=== PATIENT | male | born 1935 | race Caucasian/White ===

== ENCOUNTER 2020-11-24 12:01 | Outpatient (CLI) | payer MEDICARE, BC | END 2020-11-24 12:02 | disposition home or self-care (01) | LOC: CSHCT 12:01 | PROVIDERS: ATTEND Otolaryngology | DX: H93.8X2 Other specified disorders of left ear (principal); Z90.49 Acquired absence of other specified parts of digestive tract; M26.642 Arthritis of left temporomandibular joint | CPT/HCPCS: 70480 ==

== ENCOUNTER 2021-01-19 06:59 | Day surgery (SDC) | payer MEDICARE, BC ==
[2021-01-15 13:35] VITALS: BMI 26.4
[2021-01-19] MEDS ORDERED: Lidocaine 1% MPF 2 ML VIAL ONE (09:04)
[2021-01-19] MEDS ORDERED: oFLOXacin 0.3% Opth 5 ML BOT ONE (09:56)
[2021-01-19] MEDS ORDERED: Lidocaine 1% w/Epinephrine 1:100K 30 ML VIAL ONE (09:56)
[2021-01-19] MEDS ORDERED: CEFAZOLIN 1 GM VIAL ONE (09:57)
[2021-01-19] MEDS ORDERED: PROPOFOL 20 ML ONE (10:00)
[2021-01-19] MEDS ORDERED: Fentanyl 100 MCG/2 ML VIAL ONE (10:00)
[2021-01-19] MEDS ORDERED: Midazolam HCl 2 mg/2 ml Vial ONE (10:00)
[2021-01-19] MEDS ORDERED: Ondansetron PF 4 MG/2 ML Vial ONE (10:01)
[2021-01-19] MEDS ORDERED: Rocuronium Bromide 10 MG/ML (10ML VIAL) ONE (10:01)
[2021-01-19] MEDS ORDERED: Dexamethasone 20 MG/5 ML VIAL ONE (10:01)
[2021-01-19] MEDS ORDERED: PHENYLEPHRINE-NS 100 MCG/ML 10 ML SYRINGE ONE (10:24)
[2021-01-19] MEDS ORDERED: ePHEDrine Sulfate 50 MG/10 ML VIAL ONE (10:32)
[2021-01-19] MEDS ORDERED: Mupirocin 2% Ointment 22 GM Tube ONE (11:06)
== END 2021-01-19 12:30 | disposition home or self-care (01) ==
LOC: CSHSDC 06:59
PROVIDERS: ATTEND Otolaryngology Plastic Surgery within the Head & Neck
PROC: 0HQ2XZZ Repair Right Ear Skin, External Approach (ICD-10-PCS; principal; 2021-01-19)
DX: C44.292 Other specified malignant neoplasm of skin of right ear and external auricular canal (principal); H60.501 Unspecified acute noninfective otitis externa, right ear; H93.8X1 Other specified disorders of right ear
CPT/HCPCS: 88305; 88325; J0690; J1100; J2250; J2405; J2704; J3010

== ENCOUNTER 2021-10-11 06:58 | Inpatient (IN) | payer MEDICARE, BC ==
[2021-10-11 07:28] LABS: #Monocytes 0.2 10x3/uL (0.0-1.1); #Neutrophils 10.9 10x3/uL (1.5-8.4); %Basophils 0.2 % (0.0-2.0); %Lymphocytes 11.1 % (18.0-47.0); %Monocytes 1.3 % (0.0-10.0); %Neutrophils 86.8 % (40.0-75.0); Hemoglobin 15.6 g/dL (13.5-17.5); Mean Corpuscular HGB CONC 33.4 g/dL (32.0-36.0); Mean Corpuscular Hemoglobin 29.5 pg (27.0-33.0); Mean Corpuscular Volume 88.4 fl (81.2-95.1); Mean Platelet Volume 9.7 fl (7.4-10.4); Platelet Count 243 10x3/uL (150-450); RBC Distribution Width 15.1 % (11.5-14.5); Red Blood Cell (RBC) Count 5.28 10x6/uL (4.32-5.72); White Blood Cell (WBC) Count 12.5 10x3/uL (3.5-10.5)
[2021-10-11] MEDS ORDERED: Morphine 4 MG/ML VIAL ONE (07:30)
[2021-10-11] MEDS ORDERED: Ondansetron PF 4 MG/2 ML Vial ONE (07:30)
[2021-10-11] MEDS ORDERED: Piperacillin/Tazobactam 3.375 GM VIAL ONE (07:30)
[2021-10-11] MEDS ORDERED: Acetaminophen 500 MG TAB ONE (07:30)
[2021-10-11 07:45] LABS: ALT (SGPT) 24 U/L (8-55); AST (SGOT) 34 U/L (5-34); Albumin 4.1 g/dL (3.4-4.8); Alkaline Phosphatase 51 U/L (40-110); Anion Gap 20 mmol/L (10-20); BUN (Urea Nitrogen) 27 mg/dL (8.4-25.7); Bilirubin, Total 2.3 mg/dL (0.2-1.2); Calc. Creatinine Clearance 0 mL/min (70-130); Calcium 9.4 mg/dL (7.8-10.44); Carbon Dioxide 15 mmol/L (23-31); Chloride 110 mmol/L (98-107); Estimated GFR 34; Globulin 2.9 g/dL (2.4-3.5); Glucose 110 mg/dL (83-110); Lipase 34 U/L (8-78); Potassium 4.4 mmol/L (3.5-5.1); Sodium 141 mmol/L (136-145)
[2021-10-11] MEDS ORDERED: Iopamidol 300 61% 100 ML VIAL FS ONE (08:00)
[2021-10-11 10:07] LABS: SARS-CoV-2 NAA Rapid Test Not Detected (NotDetected)
[2021-10-11 10:11] LABS: Lactic Acid 0.9 mmol/L (0.5-2.2)
[2021-10-11 10:18] LABS: Bilirubin Neg (Negative); Blood, Urine 50 (Negative); Clarity Slightly Cloudy (Clear); Glucose, Urine (Dipstick) Normal (Negative); Ketone, Urine Negative (Negative); Leukocyte 100 (Negative); Nitrite Negative (Negative); Protein, Urine (Dipstick) 30 mg/dl (Neg-Trace); Specific Gravity, Urine 1.015 (1.002-1.036); Urobilinogen Normal mg/dL (Less than 2)
[2021-10-11 10:20] LABS: RBC/HPF 0-3 HPF (0-3); Squamous Epithelial 0-3 HPF (0-3); WBC/HPF 0-3 HPF (0-3)
[2021-10-11 10:21] LABS: Bacteria/HPF Rare-Few HPF (None Seen)
[2021-10-11] MEDS ORDERED: Acetaminophen 325 MG TAB PO PRN (10:39)
[2021-10-11] MEDS ORDERED: Ondansetron ODT 4 MG TAB PO PRN (10:39)
[2021-10-11] MEDS ORDERED: Lactated Ringer's 1,000 ML IV SCH (11:00)
[2021-10-11] MEDS ORDERED: Piperacillin/Tazobactam 3.375 GM in Sodium Chloride 0.9% 100 ML IVPB SCH (12:00)
[2021-10-11 15:11] VITALS: BMI 27.0
[2021-10-11] MEDS: Fenofibrate Nanocrystallized 145 MG TAB PO SCH (20:51)
[2021-10-11] MEDS: Atorvastatin Calcium 40 MG TAB PO SCH (20:51)
[2021-10-11] MEDS: Aspirin 81 mg Enteric Coated Tablet PO SCH (20:51)
[2021-10-11] MEDS: Piperacillin/Tazobactam 3.375 GM in Sodium Chloride 0.9% 100 ML IVPB SCH (20:58)
[2021-10-12 05:03] LABS: #Eosinphils 0.1 10x3/uL (0.0-0.5); #Monocytes 1.1 10x3/uL (0.0-1.1); #Neutrophils 8.2 10x3/uL (1.5-8.4); %Basophils 0.2 % (0.0-2.0); %Eosinophils 0.7 % (0.0-6.0); %Lymphocytes 8.1 % (18.0-47.0); %Monocytes 10.3 % (0.0-10.0); %Neutrophils 80.2 % (40.0-75.0); Mean Corpuscular HGB CONC 32.3 g/dL (32.0-36.0); Mean Corpuscular Hemoglobin 29.1 pg (27.0-33.0); Mean Corpuscular Volume 89.9 fl (81.2-95.1); Mean Platelet Volume 9.8 fl (7.4-10.4); Platelet Count 190 10x3/uL (150-450); RBC Distribution Width 15.2 % (11.5-14.5); Red Blood Cell (RBC) Count 4.47 10x6/uL (4.32-5.72); White Blood Cell (WBC) Count 10.2 10x3/uL (3.5-10.5)
[2021-10-12] MEDS: Piperacillin/Tazobactam 3.375 GM in Sodium Chloride 0.9% 100 ML IVPB SCH ×3 (05:06→22:24)
[2021-10-12 05:22] LABS: ALT (SGPT) 19 U/L (8-55); AST (SGOT) 27 U/L (5-34); Albumin 3.2 g/dL (3.4-4.8); Alkaline Phosphatase 37 U/L (40-110); Anion Gap 13 mmol/L (10-20); BUN (Urea Nitrogen) 28 mg/dL (8.4-25.7); Bilirubin, Total 0.9 mg/dL (0.2-1.2); Calc. Creatinine Clearance 45 mL/min (70-130); Calcium 8.8 mg/dL (7.8-10.44); Carbon Dioxide 22 mmol/L (23-31); Chloride 109 mmol/L (98-107); Estimated GFR 43; Globulin 2.7 g/dL (2.4-3.5); Glucose 91 mg/dL (83-110); Magnesium 1.9 mg/dL (1.6-2.6); Protein, Total 5.9 g/dL (5.8-8.1); Sodium 140 mmol/L (136-145)
[2021-10-12] MEDS: Cholecalciferol 1,000 UNITS (25 MCG) TAB PO SCH (09:37)
[2021-10-12] MEDS: Tamsulosin HCl 0.4 MG CAP PO SCH (09:37)
[2021-10-12] MEDS: Folic Acid 1 MG TAB PO SCH (09:38)
[2021-10-12] MEDS: Multivitamin W/ Minerals 1 TAB PO SCH (13:59)
[2021-10-12] MEDS: Fenofibrate Nanocrystallized 145 MG TAB PO SCH (22:23)
[2021-10-12] MEDS: Aspirin 81 mg Enteric Coated Tablet PO SCH (22:23)
[2021-10-12] MEDS: Atorvastatin Calcium 40 MG TAB PO SCH (22:23)
[2021-10-12] MEDS ORDERED: Mag-Al 1200 mg/1200 mg/30 ML UDCUP PO PRN (22:47)
[2021-10-13 03:58] LABS: #Eosinphils 0.1 10x3/uL (0.0-0.5); #Neutrophils 5.4 10x3/uL (1.5-8.4); %Basophils 0.1 % (0.0-2.0); %Eosinophils 1.2 % (0.0-6.0); %Neutrophils 72.3 % (40.0-75.0); Hemoglobin 12.6 g/dL (13.5-17.5); Mean Corpuscular HGB CONC 32.5 g/dL (32.0-36.0); Mean Corpuscular Volume 89.2 fl (81.2-95.1); Mean Platelet Volume 10.1 fl (7.4-10.4); Platelet Count 217 10x3/uL (150-450); RBC Distribution Width 14.9 % (11.5-14.5); Red Blood Cell (RBC) Count 4.35 10x6/uL (4.32-5.72); White Blood Cell (WBC) Count 7.5 10x3/uL (3.5-10.5)
[2021-10-13 04:21] LABS: ALT (SGPT) 20 U/L (8-55); AST (SGOT) 26 U/L (5-34); Albumin 3.2 g/dL (3.4-4.8); Alkaline Phosphatase 42 U/L (40-110); Anion Gap 15 mmol/L (10-20); BUN (Urea Nitrogen) 34 mg/dL (8.4-25.7); Bilirubin, Total 0.8 mg/dL (0.2-1.2); Calc. Creatinine Clearance 42 mL/min (70-130); Calcium 9.1 mg/dL (7.8-10.44); Carbon Dioxide 21 mmol/L (23-31); Chloride 107 mmol/L (98-107); Estimated GFR 39; Globulin 2.7 g/dL (2.4-3.5); Glucose 101 mg/dL (83-110); Potassium 4.1 mmol/L (3.5-5.1); Protein, Total 5.9 g/dL (5.8-8.1); Sodium 139 mmol/L (136-145)
[2021-10-13] MEDS: Piperacillin/Tazobactam 3.375 GM in Sodium Chloride 0.9% 100 ML IVPB SCH ×3 (05:38→21:31)
[2021-10-13] MEDS: Folic Acid 1 MG TAB PO SCH (09:42)
[2021-10-13] MEDS: Multivitamin W/ Minerals 1 TAB PO SCH (09:42)
[2021-10-13] MEDS: Tamsulosin HCl 0.4 MG CAP PO SCH (09:42)
[2021-10-13] MEDS: Cholecalciferol 1,000 UNITS (25 MCG) TAB PO SCH (09:42)
[2021-10-13] MEDS ORDERED: Polyethylene Glycol 3350 17 GM Packet PO PRN (18:58)
[2021-10-13] MEDS ORDERED: Polyethylene Glycol 3350 17 GM Packet PO SCH (20:00)
[2021-10-13] MEDS ORDERED: Acetaminophen 500 MG TAB PO PRN (20:36)
[2021-10-13] MEDS ORDERED: Benzonatate 100 MG CAP PO PRN (20:36)
[2021-10-13] MEDS ORDERED: Bisacodyl 5 MG TAB PO PRN (20:36)
[2021-10-13] MEDS ORDERED: Senokot S 8.6-50 MG TAB PO PRN (20:36)
[2021-10-13] MEDS ORDERED: Calcium Carbonate 500 MG ChewTAB PO PRN (20:36)
[2021-10-13] MEDS ORDERED: diphenhydrAMINE 25 MG CAP PO PRN (20:36)
[2021-10-13] MEDS ORDERED: Moisturizing Cream (Eucerin) 113 GM JAR TOP PRN (20:36)
[2021-10-13] MEDS ORDERED: Artificial Tear Sol 15 ML BOT EA EYE PRN (20:36)
[2021-10-13] MEDS: Atorvastatin Calcium 40 MG TAB PO SCH (20:38)
[2021-10-13] MEDS: Fenofibrate Nanocrystallized 145 MG TAB PO SCH (20:38)
[2021-10-13] MEDS: Aspirin 81 mg Enteric Coated Tablet PO SCH (20:38)
[2021-10-13 21:58] LABS: Creatinine, Urine 72.1 mg/dL (63-166); Microalbumin/Creat Ratio 13.9 mg/g (Less than 30)
[2021-10-14] MEDS: Piperacillin/Tazobactam 3.375 GM in Sodium Chloride 0.9% 100 ML IVPB SCH (05:39)
[2021-10-14] MEDS: Multivitamin W/ Minerals 1 TAB PO SCH (09:54)
[2021-10-14] MEDS: Tamsulosin HCl 0.4 MG CAP PO SCH (09:54)
[2021-10-14] MEDS: Cholecalciferol 1,000 UNITS (25 MCG) TAB PO SCH (09:54)
[2021-10-14] MEDS: Folic Acid 1 MG TAB PO SCH (09:54)
[2021-10-14 12:47] VITALS: BP 152/63; TEMP 96.9
== END 2021-10-14 14:35 | disposition home or self-care (01) | DRG 872 ==
LOC: CSHERS 06:58 → CSHTELE 13:55 → UNDOADMIN 13:55 → OBSVTOIN 13:55 → INTOOBSV 13:55 → CSHTELE 10-12 18:36
PROVIDERS: ADMIT Family Medicine; ATTEND Family Medicine
DX: A41.50 Gram-negative sepsis, unspecified (principal); N17.9 Acute kidney failure, unspecified; N39.0 Urinary tract infection, site not specified; E78.5 Hyperlipidemia, unspecified; K80.20 Calculus of gallbladder without cholecystitis without obstruction; N20.0 Calculus of kidney; K76.0 Fatty (change of) liver, not elsewhere classified; N28.1 Cyst of kidney, acquired; K76.89 Other specified diseases of liver; N18.9 Chronic kidney disease, unspecified; R31.9 Hematuria, unspecified; I12.9 Hypertensive chronic kidney disease with stage 1 through stage 4 chronic kidney disease, or unspecified chronic kidney disease; Z20.822 Contact with and (suspected) exposure to COVID-19; Z79.899 Other long term (current) drug therapy; Z88.1 Allergy status to other antibiotic agents
CPT/HCPCS: 36415; 71045; 74177; 76705; 80053; 81003; 81015; 82043; 83605; 83690; 83735; 84153; 84484; 85025; 87040; 87077; 87086; 87149; 87186; 93005; 93010; 94760; 96365; 96366; 96375; 96376; G0378; J2270; J2405; J2543; J3490; J7120; Q9967

== ENCOUNTER 2021-11-09 11:55 | Outpatient (CLI) | payer MEDICARE, BC | END 2021-11-09 11:56 | disposition home or self-care (01) | LOC: CSHRAD 11:55 | PROVIDERS: ATTEND Family Medicine | DX: M17.12 Unilateral primary osteoarthritis, left knee (principal); Z96.652 Presence of left artificial knee joint; M25.862 Other specified joint disorders, left knee ==

== ENCOUNTER 2022-05-27 10:34 | Inpatient (IN) | payer MEDICARE, BC ==
[2022-05-27] MEDS ORDERED: Morphine 4 MG/ML VIAL ONE (11:19)
[2022-05-27] MEDS ORDERED: Ondansetron PF 4 MG/2 ML Vial ONE (11:19)
[2022-05-27 11:32] LABS: Hemoglobin 15.4 g/dL (13.5-17.5); Mean Corpuscular HGB CONC 32.7 g/dL (32.0-36.0); Mean Corpuscular Hemoglobin 29.5 pg (27.0-33.0); Mean Corpuscular Volume 90.2 fl (81.2-95.1); Mean Platelet Volume 9.2 fl (7.4-10.4); Platelet Count 228 10x3/uL (150-450); RBC Distribution Width 15.3 % (11.5-14.5); Red Blood Cell (RBC) Count 5.22 10x6/uL (4.32-5.72); White Blood Cell (WBC) Count 17.9 10x3/uL (3.5-10.5)
[2022-05-27] MEDS ORDERED: Iopamidol 370 76% 100 ML VIAL ONE (11:35)
[2022-05-27 11:38] LABS: MDiff Complete? YES
[2022-05-27 11:40] LABS: ALT (SGPT) 60 U/L (8-55); AST (SGOT) 78 U/L (5-34); Alkaline Phosphatase 45 U/L (40-110); Anion Gap 16 mmol/L (10-20); BUN (Urea Nitrogen) 31 mg/dL (8.4-25.7); Bilirubin, Total 1.6 mg/dL (0.2-1.2); Calc. Creatinine Clearance 0 mL/min (70-130); Calcium 9.8 mg/dL (7.8-10.44); Carbon Dioxide 21 mmol/L (23-31); Chloride 106 mmol/L (98-107); Estimated GFR 33; Globulin 2.6 g/dL (2.4-3.5); Glucose 123 mg/dL (83-110); Lipase 32 U/L (8-78); Potassium 4.1 mmol/L (3.5-5.1); Protein, Total 6.6 g/dL (5.8-8.1); Sodium 139 mmol/L (136-145)
[2022-05-27 11:47] LABS: Neutrophil 83 % (42-75)
[2022-05-27 11:48] LABS: Band 5 % (5-11); Lymphocytes 5 % (21-51); Monocytes 4 % (0-10); Reactive Lymphocytes 3 % (0-10)
[2022-05-27 11:49] LABS: Platelet Morphology Comment Appears Adequate; RBC Morphology Normal
[2022-05-27 12:03] LABS: CKMB 1.7 ng/mL (0-6.6)
[2022-05-27] MEDS ORDERED: cefTRIAXone\\ROCEPHIN 1 GM VIAL ONE (12:43)
[2022-05-27] MEDS ORDERED: Ondansetron ODT 4 MG TAB PO PRN (14:31)
[2022-05-27] MEDS ORDERED: Ondansetron PF 4 MG/2 ML Vial IVP PRN (14:31)
[2022-05-27] MEDS ORDERED: Acetaminophen 650 MG Suppository PR PRN (14:31)
[2022-05-27 14:44] VITALS: BMI 26.1
[2022-05-27] MEDS ORDERED: Aspirin 325 MG TAB PO SCH (15:45)
[2022-05-27 16:40] LABS: Troponin I 1.092 ng/mL (< 0.028)
[2022-05-27 18:56] LABS: Troponin I 0.943 ng/mL (< 0.028)
[2022-05-27] MEDS: Acetaminophen 325 MG TAB PO PRN (21:35)
[2022-05-27] MEDS: Atorvastatin Calcium 40 MG TAB PO SCH (21:35)
[2022-05-27] MEDS ORDERED: Piperacillin/Tazobactam 3.375 GM in Sodium Chloride 0.9% 100 ML IVPB SCH (23:00)
[2022-05-28] MEDS: Piperacillin/Tazobactam 3.375 GM in Sodium Chloride 0.9% 100 ML IVPB SCH ×3 (02:55→18:18)
[2022-05-28 03:41] LABS: #Monocytes 0.6 10x3/uL (0.0-1.1); #Neutrophils 11.6 10x3/uL (1.5-8.4); %Basophils 0.2 % (0.0-2.0); %Eosinophils 0.1 % (0.0-6.0); %Lymphocytes 5.7 % (18.0-47.0); %Monocytes 4.3 % (0.0-10.0); %Neutrophils 89.2 % (40.0-75.0); Hemoglobin 13.4 g/dL (13.5-17.5); Mean Corpuscular HGB CONC 32.7 g/dL (32.0-36.0); Mean Corpuscular Hemoglobin 29.3 pg (27.0-33.0); Mean Corpuscular Volume 89.7 fl (81.2-95.1); Mean Platelet Volume 9.5 fl (7.4-10.4); Platelet Count 176 10x3/uL (150-450); RBC Distribution Width 15.4 % (11.5-14.5); Red Blood Cell (RBC) Count 4.57 10x6/uL (4.32-5.72); White Blood Cell (WBC) Count 12.9 10x3/uL (3.5-10.5)
[2022-05-28 03:52] LABS: ALT (SGPT) 43 U/L (8-55); AST (SGOT) 45 U/L (5-34); Albumin 3.3 g/dL (3.4-4.8); Alkaline Phosphatase 39 U/L (40-110); Anion Gap 13 mmol/L (10-20); BUN (Urea Nitrogen) 35 mg/dL (8.4-25.7); Bilirubin, Total 1.1 mg/dL (0.2-1.2); Calc. Creatinine Clearance 40 mL/min (70-130); Calcium 9.7 mg/dL (7.8-10.44); Carbon Dioxide 22 mmol/L (23-31); Chloride 110 mmol/L (98-107); Estimated GFR 39; Globulin 2.7 g/dL (2.4-3.5); Glucose 109 mg/dL (83-110); Potassium 3.8 mmol/L (3.5-5.1); Sodium 141 mmol/L (136-145)
[2022-05-28] MEDS: Acetaminophen 325 MG TAB PO PRN ×2 (04:05→08:41)
[2022-05-28 08:19] LABS: SARS-CoV-2 NAA Rapid Test DETECTED (NotDetected)
[2022-05-28] MEDS: Tamsulosin HCl 0.4 MG CAP PO SCH (08:42)
[2022-05-28] MEDS ORDERED: Bupivacaine HCl 0.5%/Epinephrine 1:200,000/PF 30 ml Vial ONE (09:34)
[2022-05-28] MEDS ORDERED: Fentanyl 100 MCG/2 ML VIAL ONE (10:07)
[2022-05-28] MEDS ORDERED: Rocuronium Bromide 10 MG/ML (10ML VIAL) ONE ×2 (10:10→10:59)
[2022-05-28] MEDS ORDERED: Lidocaine 1% PF 5 ML VIAL ONE (10:10)
[2022-05-28] MEDS ORDERED: SUGAMMADEX SODIUM 200 MG/2 ML VIAL ONE (10:14)
[2022-05-28] MEDS ORDERED: Lidocaine 2% 6 ML SYR ONE (10:15)
[2022-05-28] MEDS ORDERED: ePHEDrine Sulfate 50 MG/10 ML VIAL ONE (10:52)
[2022-05-28] MEDS ORDERED: Ondansetron PF 4 MG/2 ML Vial ONE (10:58)
[2022-05-28] MEDS ORDERED: Dexamethasone 20 MG/5 ML VIAL ONE (10:58)
[2022-05-28] MEDS ORDERED: Acetaminophen 325 MG TAB PO PRN (12:43)
[2022-05-28] MEDS ORDERED: Morphine 4 MG/ML VIAL SLOW IVP PRN (12:43)
[2022-05-28] MEDS: Morphine 2 MG/ML VIAL SLOW IVP PRN ×2 (14:30→22:33)
[2022-05-28] MEDS: HYDROcodone/Acetaminophen 5/325 mg Tablet PO PRN ×2 (18:18→23:32)
[2022-05-28] MEDS: Atorvastatin Calcium 40 MG TAB PO SCH (22:33)
[2022-05-29] MEDS: Piperacillin/Tazobactam 3.375 GM in Sodium Chloride 0.9% 100 ML IVPB SCH ×3 (01:52→17:27)
[2022-05-29 05:05] LABS: Hemoglobin 12.2 g/dL (13.5-17.5); Mean Corpuscular HGB CONC 32.7 g/dL (32.0-36.0); Mean Corpuscular Hemoglobin 29.4 pg (27.0-33.0); Mean Corpuscular Volume 89.9 fl (81.2-95.1); Mean Platelet Volume 9.9 fl (7.4-10.4); Platelet Count 181 10x3/uL (150-450); RBC Distribution Width 15.5 % (11.5-14.5); Red Blood Cell (RBC) Count 4.15 10x6/uL (4.32-5.72); White Blood Cell (WBC) Count 10.7 10x3/uL (3.5-10.5)
[2022-05-29 05:08] LABS: MDiff Complete? YES
[2022-05-29 05:13] LABS: ALT (SGPT) 61 U/L (8-55); AST (SGOT) 69 U/L (5-34); Albumin 2.9 g/dL (3.4-4.8); Alkaline Phosphatase 37 U/L (40-110); Anion Gap 13 mmol/L (10-20); BUN (Urea Nitrogen) 42 mg/dL (8.4-25.7); Bilirubin, Total 0.9 mg/dL (0.2-1.2); Calc. Creatinine Clearance 41 mL/min (70-130); Calcium 9.3 mg/dL (7.8-10.44); Carbon Dioxide 21 mmol/L (23-31); Chloride 111 mmol/L (98-107); Estimated GFR 40; Globulin 2.9 g/dL (2.4-3.5); Glucose 140 mg/dL (83-110); Potassium 4.1 mmol/L (3.5-5.1); Protein, Total 5.8 g/dL (5.8-8.1); Sodium 141 mmol/L (136-145)
[2022-05-29 06:27] LABS: Band 5 % (5-11); Lymphocytes 3 % (21-51); Monocytes 3 % (0-10); Neutrophil 89 % (42-75)
[2022-05-29 06:30] LABS: Ovalocytes SLIGHT = 2-5 cells (100X) (0-1/hpf)
[2022-05-29 06:31] LABS: Large Platelets SLIGHT; Platelet Clumps SLIGHT; Platelet Morphology Comment Appears Adequate
[2022-05-29] MEDS: HYDROcodone/Acetaminophen 5/325 mg Tablet PO PRN ×2 (06:35→20:52)
[2022-05-29] MEDS: Tamsulosin HCl 0.4 MG CAP PO SCH (09:58)
[2022-05-29] MEDS: Sodium Chloride 0.9% 1,000 ML IV SCH (16:00)
[2022-05-29] MEDS: Atorvastatin Calcium 40 MG TAB PO SCH (20:52)
[2022-05-30] MEDS: HYDROcodone/Acetaminophen 5/325 mg Tablet PO PRN ×3 (01:53→21:32)
[2022-05-30] MEDS: Piperacillin/Tazobactam 3.375 GM in Sodium Chloride 0.9% 100 ML IVPB SCH ×3 (03:13→21:33)
[2022-05-30 04:00] LABS: #Eosinphils 0.2 10x3/uL (0.0-0.5); #Monocytes 0.9 10x3/uL (0.0-1.1); #Neutrophils 9.4 10x3/uL (1.5-8.4); %Basophils 0.1 % (0.0-2.0); %Lymphocytes 7.7 % (18.0-47.0); %Monocytes 8.2 % (0.0-10.0); %Neutrophils 81.7 % (40.0-75.0); Hemoglobin 11.4 g/dL (13.5-17.5); Mean Corpuscular HGB CONC 32.9 g/dL (32.0-36.0); Mean Corpuscular Hemoglobin 29.2 pg (27.0-33.0); Mean Corpuscular Volume 88.5 fl (81.2-95.1); Platelet Count 208 10x3/uL (150-450); RBC Distribution Width 15.4 % (11.5-14.5); Red Blood Cell (RBC) Count 3.91 10x6/uL (4.32-5.72); White Blood Cell (WBC) Count 11.5 10x3/uL (3.5-10.5)
[2022-05-30 04:03] LABS: ALT (SGPT) 49 U/L (8-55); AST (SGOT) 45 U/L (5-34); Albumin 2.8 g/dL (3.4-4.8); Alkaline Phosphatase 38 U/L (40-110); Anion Gap 12 mmol/L (10-20); BUN (Urea Nitrogen) 45 mg/dL (8.4-25.7); Bilirubin, Total 0.8 mg/dL (0.2-1.2); Calc. Creatinine Clearance 38 mL/min (70-130); Carbon Dioxide 22 mmol/L (23-31); Chloride 112 mmol/L (98-107); Estimated GFR 37; Globulin 2.8 g/dL (2.4-3.5); Glucose 123 mg/dL (83-110); Potassium 3.8 mmol/L (3.5-5.1); Protein, Total 5.6 g/dL (5.8-8.1); Sodium 142 mmol/L (136-145)
[2022-05-30 05:37] LABS: Band 5 % (5-11); Lymphocytes 8 % (21-51); Monocytes 2 % (0-10); Neutrophil 85 % (42-75)
[2022-05-30 05:41] LABS: Crenated RBC SLIGHT = 1-5 cells (100X) (None Seen); Ovalocytes SLIGHT = 2-5 cells (100X) (0-1/hpf); Platelet Morphology Comment Appears Adequate
[2022-05-30] MEDS: Polyethylene Glycol 3350 17 GM Packet PO SCH (08:46)
[2022-05-30] MEDS: Tamsulosin HCl 0.4 MG CAP PO SCH (08:48)
[2022-05-30] MEDS: Sodium Chloride 0.9% 1,000 ML IV SCH (09:41)
[2022-05-30] MEDS ORDERED: Dextrose 5 %-0.45 % NaCl 1,000 ML IV SCH (13:30)
[2022-05-30] MEDS ORDERED: Bisacodyl 10 MG SUPP PR PRN (18:16)
[2022-05-30 21:00] LABS: Bilirubin Neg (Negative); Blood, Urine Negative (Negative); Clarity Clear (Clear); Glucose, Urine (Dipstick) Normal (Negative); Ketone, Urine Negative (Negative); Leukocyte Negative (Negative); Nitrite Negative (Negative); Protein, Urine (Dipstick) Negative (Neg-Trace); Specific Gravity, Urine 1.015 (1.005-1.030); Urobilinogen Normal mg/dL (Less than 2)
[2022-05-30 21:09] LABS: Bacteria/HPF None Seen HPF (None Seen); CAUTI Indications for Culture Fever or rigors; RBC/HPF None Seen HPF (0-3); Squamous Epithelial 0-3 HPF (0-3); WBC/HPF 0-3 HPF (0-3)
[2022-05-30 21:10] LABS: Urine Culture Reflex No No
[2022-05-30] MEDS: Atorvastatin Calcium 40 MG TAB PO SCH (21:33)
[2022-05-31] MEDS: HYDROcodone/Acetaminophen 5/325 mg Tablet PO PRN ×4 (00:33→21:17)
[2022-05-31 03:38] LABS: #Eosinphils 0.1 10x3/uL (0.0-0.5); #Monocytes 0.8 10x3/uL (0.0-1.1); #Neutrophils 5.3 10x3/uL (1.5-8.4); %Basophils 0.1 % (0.0-2.0); %Eosinophils 1.6 % (0.0-6.0); %Lymphocytes 14.4 % (18.0-47.0); %Monocytes 11.2 % (0.0-10.0); Hemoglobin 12.1 g/dL (13.5-17.5); Mean Corpuscular HGB CONC 33.1 g/dL (32.0-36.0); Mean Corpuscular Hemoglobin 29.1 pg (27.0-33.0); Platelet Count 232 10x3/uL (150-450); RBC Distribution Width 15.1 % (11.5-14.5); Red Blood Cell (RBC) Count 4.16 10x6/uL (4.32-5.72); White Blood Cell (WBC) Count 7.3 10x3/uL (3.5-10.5)
[2022-05-31 03:59] LABS: ALT (SGPT) 43 U/L (8-55); AST (SGOT) 42 U/L (5-34); Albumin 2.9 g/dL (3.4-4.8); Alkaline Phosphatase 36 U/L (40-110); Anion Gap 12 mmol/L (10-20); BUN (Urea Nitrogen) 36 mg/dL (8.4-25.7); Bilirubin, Total 1.5 mg/dL (0.2-1.2); Calc. Creatinine Clearance 46 mL/min (70-130); Calcium 9.3 mg/dL (7.8-10.44); Carbon Dioxide 23 mmol/L (23-31); Chloride 109 mmol/L (98-107); Estimated GFR 46; Globulin 2.9 g/dL (2.4-3.5); Glucose 94 mg/dL (83-110); Potassium 3.9 mmol/L (3.5-5.1); Protein, Total 5.8 g/dL (5.8-8.1); Sodium 140 mmol/L (136-145)
[2022-05-31] MEDS: Tamsulosin HCl 0.4 MG CAP PO SCH (09:47)
[2022-05-31] MEDS: Piperacillin/Tazobactam 3.375 GM in Sodium Chloride 0.9% 100 ML IVPB SCH ×2 (09:47→20:57)
[2022-05-31] MEDS: Polyethylene Glycol 3350 17 GM Packet PO SCH (12:49)
[2022-05-31] MEDS: Atorvastatin Calcium 40 MG TAB PO SCH (20:57)
[2022-06-01] MEDS: HYDROcodone/Acetaminophen 5/325 mg Tablet PO PRN (03:50)
[2022-06-01 04:40] LABS: #Eosinphils 0.2 10x3/uL (0.0-0.5); #Monocytes 0.7 10x3/uL (0.0-1.1); #Neutrophils 8.2 10x3/uL (1.5-8.4); %Basophils 0.3 % (0.0-2.0); %Eosinophils 1.8 % (0.0-6.0); %Monocytes 6.6 % (0.0-10.0); %Neutrophils 78.2 % (40.0-75.0); Hemoglobin 12.6 g/dL (13.5-17.5); Mean Corpuscular HGB CONC 33.4 g/dL (32.0-36.0); Mean Corpuscular Hemoglobin 29.2 pg (27.0-33.0); Mean Corpuscular Volume 87.3 fl (81.2-95.1); Platelet Count 288 10x3/uL (150-450); RBC Distribution Width 14.6 % (11.5-14.5); Red Blood Cell (RBC) Count 4.32 10x6/uL (4.32-5.72); White Blood Cell (WBC) Count 10.4 10x3/uL (3.5-10.5)
[2022-06-01 04:55] LABS: ALT (SGPT) 37 U/L (8-55); AST (SGOT) 30 U/L (5-34); Alkaline Phosphatase 42 U/L (40-110); Anion Gap 13 mmol/L (10-20); BUN (Urea Nitrogen) 30 mg/dL (8.4-25.7); Bilirubin, Total 1.8 mg/dL (0.2-1.2); Calc. Creatinine Clearance 53 mL/min (70-130); Calcium 9.5 mg/dL (7.8-10.44); Carbon Dioxide 23 mmol/L (23-31); Chloride 109 mmol/L (98-107); Estimated GFR 56; Globulin 2.9 g/dL (2.4-3.5); Glucose 98 mg/dL (83-110); Potassium 3.8 mmol/L (3.5-5.1); Protein, Total 5.9 g/dL (5.8-8.1); Sodium 141 mmol/L (136-145)
[2022-06-01] MEDS: Polyethylene Glycol 3350 17 GM Packet PO SCH (06:53)
[2022-06-01] MEDS: Tamsulosin HCl 0.4 MG CAP PO SCH (08:00)
[2022-06-01] MEDS: Piperacillin/Tazobactam 3.375 GM in Sodium Chloride 0.9% 100 ML IVPB SCH ×2 (11:09→21:02)
[2022-06-01] MEDS ORDERED: Iopamidol 0 ML ONE (13:42)
[2022-06-01] MEDS ORDERED: Ethanolamine Oleate 5% 2 ml Ampule ONE (13:42)
[2022-06-01] MEDS ORDERED: Indomethacin 50 MG SUPP ONE (13:43)
[2022-06-01] MEDS ORDERED: PROPOFOL 20 ML ONE (14:15)
[2022-06-01] MEDS ORDERED: Fentanyl 100 MCG/2 ML VIAL ONE ×2 (14:18→15:05)
[2022-06-01] MEDS ORDERED: Iopamidol 30 ML ONE (15:04)
[2022-06-01] MEDS ORDERED: Ondansetron PF 4 MG/2 ML Vial ONE (15:19)
[2022-06-01] MEDS: Atorvastatin Calcium 40 MG TAB PO SCH (21:02)
[2022-06-02 04:51] LABS: #Eosinphils 0.4 10x3/uL (0.0-0.5); #Monocytes 0.7 10x3/uL (0.0-1.1); #Neutrophils 8.2 10x3/uL (1.5-8.4); %Basophils 0.4 % (0.0-2.0); %Eosinophils 3.5 % (0.0-6.0); %Lymphocytes 11.2 % (18.0-47.0); %Monocytes 6.3 % (0.0-10.0); %Neutrophils 76.5 % (40.0-75.0); Hemoglobin 11.4 g/dL (13.5-17.5); Mean Corpuscular HGB CONC 32.8 g/dL (32.0-36.0); Mean Corpuscular Volume 88.5 fl (81.2-95.1); Mean Platelet Volume 9.9 fl (7.4-10.4); Platelet Count 340 10x3/uL (150-450); Red Blood Cell (RBC) Count 3.93 10x6/uL (4.32-5.72); White Blood Cell (WBC) Count 10.7 10x3/uL (3.5-10.5)
[2022-06-02 05:04] LABS: ALT (SGPT) 39 U/L (8-55); AST (SGOT) 37 U/L (5-34); Albumin 2.8 g/dL (3.4-4.8); Alkaline Phosphatase 53 U/L (40-110); Anion Gap 13 mmol/L (10-20); BUN (Urea Nitrogen) 39 mg/dL (8.4-25.7); Bilirubin, Total 1.2 mg/dL (0.2-1.2); Calc. Creatinine Clearance 48 mL/min (70-130); Calcium 9.2 mg/dL (7.8-10.44); Carbon Dioxide 23 mmol/L (23-31); Chloride 111 mmol/L (98-107); Estimated GFR 49; Globulin 2.8 g/dL (2.4-3.5); Glucose 113 mg/dL (83-110); Potassium 3.9 mmol/L (3.5-5.1); Protein, Total 5.6 g/dL (5.8-8.1); Sodium 143 mmol/L (136-145)
[2022-06-02] MEDS: Tamsulosin HCl 0.4 MG CAP PO SCH (08:05)
[2022-06-02] MEDS: Polyethylene Glycol 3350 17 GM Packet PO SCH (08:05)
[2022-06-02 10:27] VITALS: BP 135/70; TEMP 98.6
[2022-06-02] MEDS: Piperacillin/Tazobactam 3.375 GM in Sodium Chloride 0.9% 100 ML IVPB SCH (10:55)
== END 2022-06-02 11:45 | disposition home or self-care (01) | DRG 853 ==
LOC: CSHERS 10:34 → CSHTELE 13:57
PROVIDERS: ADMIT Internal Medicine; ATTEND Internal Medicine
PROC: 8E0ZXY6 Isolation (ICD-10-PCS; 2022-05-27)
PROC: 3E03329 Introduction of Other Anti-infective into Peripheral Vein, Percutaneous Approach (ICD-10-PCS; 2022-05-27)
PROC: 0FT44ZZ Resection of Gallbladder, Percutaneous Endoscopic Approach (ICD-10-PCS; principal; 2022-05-28)
PROC: 0F798DZ Dilation of Common Bile Duct with Intraluminal Device, Via Natural or Artificial Opening Endoscopic (ICD-10-PCS; 2022-06-01)
DX: A41.9 Sepsis, unspecified organism (principal); U07.1 COVID-19; K80.12 Calculus of gallbladder with acute and chronic cholecystitis without obstruction; K91.89 Other postprocedural complications and disorders of digestive system; E78.5 Hyperlipidemia, unspecified; I25.10 Atherosclerotic heart disease of native coronary artery without angina pectoris; D33.3 Benign neoplasm of cranial nerves; D72.829 Elevated white blood cell count, unspecified; N40.0 Benign prostatic hyperplasia without lower urinary tract symptoms; N18.9 Chronic kidney disease, unspecified; K21.9 Gastro-esophageal reflux disease without esophagitis; Z96.653 Presence of artificial knee joint, bilateral; Z96.612 Presence of left artificial shoulder joint; B96.20 Unspecified Escherichia coli [E. coli] as the cause of diseases classified elsewhere; K76.0 Fatty (change of) liver, not elsewhere classified; I12.9 Hypertensive chronic kidney disease with stage 1 through stage 4 chronic kidney disease, or unspecified chronic kidney disease; K59.09 Other constipation; K74.00 Hepatic fibrosis, unspecified; Z98.890 Other specified postprocedural states; Z88.1 Allergy status to other antibiotic agents; Z79.82 Long term (current) use of aspirin; Z95.5 Presence of coronary angioplasty implant and graft; Z87.440 Personal history of urinary (tract) infections; Z98.49 Cataract extraction status, unspecified eye; Z79.899 Other long term (current) drug therapy
CPT/HCPCS: 36415; 71045; 74022; 74177; 74330; 76705; 78226; 80053; 81001; 82553; 83605; 83690; 84484; 85025; 87040; 87077; 87086; 87149; 87186; 88304; 93005; 93306; 96374; 96375; A9537; C1713; C1725; C1889; C2617; J0696; J1100; J1430; J2270; J2272; J2405; J2543; J2704; J3010; J3490; J7042; J7050; Q9967; U0002

== ENCOUNTER 2022-06-22 10:34 | Outpatient (CLI) | payer MEDICARE, BC | END 2022-06-22 10:35 | disposition home or self-care (01) | LOC: CSHRAD 10:34 | PROVIDERS: ATTEND Family Medicine | DX: I50.9 Heart failure, unspecified (principal); D50.9 Iron deficiency anemia, unspecified; R07.9 Chest pain, unspecified | CPT/HCPCS: 36415; 71046; 83540; 83550; 83880; 85025; 85379 ==

== ENCOUNTER 2022-06-25 12:09 | Outpatient (CLI) | payer MEDICARE, BC | END 2022-06-25 12:10 | disposition home or self-care (01) | LOC: CSHCT 12:09 | PROVIDERS: ATTEND Family Medicine | DX: R79.1 Abnormal coagulation profile (principal); J98.4 Other disorders of lung; J98.11 Atelectasis; Z90.49 Acquired absence of other specified parts of digestive tract | CPT/HCPCS: 71275; 82565 ==

== ENCOUNTER 2022-07-19 12:21 | Outpatient (CLI) | payer MEDICARE, BC | END 2022-07-19 12:22 | disposition home or self-care (01) | LOC: CSHRAD 12:21 | PROVIDERS: ATTEND Family Medicine | DX: R05.9 Cough, unspecified (principal); R91.8 Other nonspecific abnormal finding of lung field; R10.84 Generalized abdominal pain | CPT/HCPCS: 36415; 71046; 80053; 83690; 85025 ==